=== PATIENT | female | born 1955 | race Caucasian/White ===

== ENCOUNTER 2017-04-04 15:29 | Emergency (ER) | payer BC ==
[~2017-04-04] VITALS: Wt 70.0 kg
[~2017-04-04 15:29] MED LIST: ASPI-664 PO; CITA10TA84 PO; HYDR-3498 PO; METF1000 PO; METH500T PO; METO25TA7 PO; NAPR-688 PO; OMEP40CA3 PO; PIOG30TA19 PO; SIMV40TA3 PO; SITA25TA3 PO
[2017-04-04] MEDS ORDERED: AZIT250T94 PO (15:49)
[2017-04-04] MEDS ORDERED: BENZ100C70 PO (15:49)
--- NOTE | 2017-04-04 15:56 | ERD ---
ER Documentation Chief Complaint Date/Time DATE: 04/04/17 TIME: 15:52 Chief Complaint COUGH SORE THROAT HEADACHE FOR THE PAST MONTH. NO FEVERS NOTED. HPI Patient is a 7-year-old female with hypertension and diabetes who presents saying that she is "sick". She said that she has had the symptoms for 1 month. She has sore throat, cough, and headache. She is coughing up mucus. She tried Tylenol. She has had no antibiotics as of yet. ROS All systems reviewed and are negative except as per history of present illness. Medications Home Meds Active Scripts Benzonatate* (Tessalon Perle*) 100 Mg Capsule, 100 MG PO Q8H Y for COUGH, #30 CAP Prov:ALAYNA LOPEZ MD 04/04/17 Azithromycin* (Zithromax*) 250 Mg Tablet, 250 MG PO .ZPACK DIRECTED, #6 TAB TAKE 500 MG (2 TABS) THE FIRST DAY THEN 250 MG (1 TAB) DAYS 2-5 Prov:ALAYNA LOPEZ MD 04/04/17 Methocarbamol* (Robaxin*) 500 Mg Tab, 500 MG PO Q8, #10 TAB Prov:PAL LINARES DO 12/29/15 Hydrocodone Bit-Acetaminophen* ([place]*) 5-325 Mg Tab, 1 TAB PO Q4H Y for PAIN LEVEL 8-10, #10 TAB Prov:PAL LINARES DO 12/29/15 Naproxen* (Naproxen*) 500 Mg Tablet, 500 MG PO BID Y for PAIN, #14 TAB Prov:PAL LINARES DO 12/29/15 Reported Medications Sitagliptin* (Januvia*) 25 Mg Tablet, PO DAILY, TAB 09/20/14 Citalopram Hydrobromide* (Citalopram Hydrobromide*) 10 Mg Tablet, 10 MG PO DAILY 02/06/12 Metoprolol Succinate* (Toprol XL*) 25 Mg Tab.sr.24h, 25 MG PO DAILY 02/06/12 Simvastatin (Simvastatin) 40 Mg Tablet, 40 MG PO HS 02/06/12 Omeprazole* (Prilosec*) 40 Mg Capsule., 40 MG PO DAILY 02/06/12 Pioglitazone Hcl* (Actos*) 30 Mg Tablet, 30 MG PO DAILY 02/06/12 Aspirin (Aspirin Low Dose) 81 Mg Tablet.dr, 81 MG PO DAILY 02/06/12 Metformin Hcl* (Metformin Hcl*) 1,000 Mg Tablet, 1000 MG PO DAILY 02/06/12 Allergies Allergies: Coded Allergies: No Known Allergies (Verified Allergy, Unknown, 09/20/14) PMhx/Soc History of Surgery: No Anesthesia Reaction: No Hx Neurological Disorder: No Hx Respiratory Disorders: No Hx Cardiac Disorders: Yes (HTN, HIGH CHOLESTEROL) Hx Psychiatric Problems: No Hx Miscellaneous Medical Probl: No Hx Alcohol Use: No Hx Substance Use: No Hx Tobacco Use: No Smoking Status: Never smoker FmHx Family History: No diabetes Physical Exam Vitals Vital Signs Date Time Temp Pulse Resp B/P Pulse Ox O2 Delivery O2 Flow Rate FiO2 04/04/17 15:31 98.9 86 20 136/87 98 Physical Exam Const: No acute distress Head: Atraumatic Eyes: Normal Conjunctiva ENT: Normal External Ears, Nose and Mouth. Neck: Full range of motion..~ No meningismus. Resp: Clear to auscultation bilaterally Cardio: Regular rate and rhythm, no murmurs Abd: Soft, non tender, non distended. Normal bowel sounds Skin: No petechiae or rashes Back: No midline or flank tenderness Ext: No cyanosis, or edema Neur: Awake and alert Psych: Normal Mood and Affect Procedures/MDM Patient is a 61-year-old female who presents with a cough. Her lung exam is normal and she is well-appearing here in the emergency department. She has no fever or tachycardia. Her oxygen level is normal. Believe the patient may have a bronchitis and I will treat her with 5 days of Zithromax. She does not require further workup or admission to the hospital at this time. I doubt pneumonia, pneumothorax, or pulmonary embolism. I believe outpatient management is appropriate but she will need close follow-up with her primary doctor within 1 week. She can return for any worsening symptoms. I will also give her a prescription for Tessalon Perles for symptomatically for cough. Departure Diagnosis: Primary Impression: Bronchitis Condition: Fair Patient Instructions: Bronchitis, Antiobiotic Treatment (Adult) Additional Instructions: Call your primary care doctor TOMORROW for an appointment during the next 1 WEEK.Tell the engineering secretary that you were referred from this facility.See the doctor sooner or return here if your condition worsens before your appointment time. ALAYNA LOPEZ MD Apr 04, 2017 15:56
== END 2017-04-04 16:05 | disposition home or self-care (01) ==
LOC: FTE 15:29
DX: J20.9 Acute bronchitis, unspecified (principal); I10 Essential (primary) hypertension; E11.9 Type 2 diabetes mellitus without complications; Z79.82 Long term (current) use of aspirin; Z79.84 Long term (current) use of oral hypoglycemic drugs
CPT/HCPCS: 99284

== ENCOUNTER 2018-06-28 13:22 | Emergency (ER) | END 2018-06-28 17:29 | disposition home or self-care (01) ==